=== PATIENT | female | born 1980 | race Caucasian/White ===

== ENCOUNTER 2017-05-29 10:43 | Emergency (ER) | payer SELFPAY ==
[2017-05-29 10:54] VITALS: TEMP 98
[2017-05-29] MEDS ORDERED: cloNIDine HCL 0.1 MG TAB PO ONE (11:13)
--- NOTE | 2017-05-29 11:17 | ED.PDOC ---
History of Present Illness - General Chief Complaint: ENT Problem Stated Complaint: Sore throat, rash, aches Time Seen by Provider: 05/29/17 11:12 Source: patient, RN notes reviewed - History of Present Illness Timing/Duration: gradual EENT Location: throat Prearrival Treatment: no prearrival treatment Improving Factors: nothing Associated Symptoms: fever, malaise - SHE IS HERE WITH A SORE THROAT AND A SUBJECTIVE FEVER FOR THE PAST TWO DAYS. SHE ALSO VOICES HAVING A RASH TO THE HANDS. VOLAR ASPECT AND ALSO STOPPED TAKING THE LISINOPRIL SEVERAL MONTHS AGO. NOW HER BP IS HIGH Allergies/Adverse Reactions: Allergies NO KNOWN ALLERGY Allergy (Verified 05/29/17 11:06) Home Medications: Ambulatory Orders Lisinopril 20 mg PO DAILY 12/24/13 Trazodone HCl 150 mg PO BEDTIME 12/24/13 Azithromycin [Zithromax Z-Jordi] 1 ea PO DAILY #1 pack 05/29/17 Triamcinolone 0.5% Cream [Kenalog 0.5% Cream] 15 gm TOP BID #1 tube 05/29/17 amLODIPine BESYLATE [Norvasc] 5 mg PO DAILY #30 tab 05/29/17 Review of Systems - Review of Systems Constitutional: States: chills, fever, malaise EENTM: States: throat pain, throat swelling Respiratory: States: cough Cardiology: States: palpitations Gastrointestinal/Abdominal: States: no symptoms reported Genitourinary: States: no symptoms reported Musculoskeletal: States: no symptoms reported Skin: States: rash - RASH TO THE PALMAR ASPECT OF THE HANDS Neurological: States: no symptoms reported Endocrine: States: no symptoms reported Hematologic/Lymphatic: States: no symptoms reported All other Systems: Reviewed and Negative, No Change from Baseline Past Medical History (General) - Patient Medical History Hx Seizures: No Hx Stroke: No Hx Dementia: No Hx Asthma: No Hx of COPD: No Hx Cardiac Disorders: No Hx Congestive Heart Failure: No Hx Pacemaker: No Hx Hypertension: Yes - Stopped taking her Lisinopril 04/2017 Hx Thyroid Disease: No Hx Diabetes: No Hx Gastroesophageal Reflux: No Hx Renal Disease: No Hx Cancer: No Hx of HIV: No Hx Hepatitis C: No Hx MRSA: Yes - Abscess 2015 MRSA Source:: Wound - Vaccination History Hx Tetanus, Diphtheria Vaccination: Yes Hx Influenza Vaccination: No Hx Pneumococcal Vaccination: No - Social History Hx Tobacco Use: Yes Hx Chewing Tobacco Use: No Hx Alcohol Use: No Hx Substance Use: No Hx Substance Use Treatment: No Hx Depression: Yes - Takes Trazodone; has not taken this in about one week Hx Physical Abuse: No Hx Emotional Abuse: No Hx Suspected Abuse: No - Female History Patient is a Female of Child Bearing Age (10 -59 yrs old): Yes Hx Last Menstrual Period: 11/29/13 Patient : No Family Medical History - Family History Mother Family History: No Known Living Status: Still Living Physical Exam - Physical Exam General Appearance: Alert, Well Developed, Well Hydrated, Well Nourished Eye Exam: bilateral normal Nasal Exam: normal inspection Throat Exam: pharynx tenderness, tonsillar exudate Neck: non-tender, full range of motion, supple, normal inspection Cardiovascular/Respiratory: regular rate, rhythm, normal peripheral pulses, no JVD, normal breath sounds, no respiratory distress Abdominal Exam: non-tender, no organomegaly Neurologic: no motor/sensory deficits, alert, normal mood/affect, oriented x 3 Skin Exam: other - PAPULAR RASH TO THE PALMAR ASPECT OF THE HANDS, SUGGESTIVE OF DYSHYDROSIS Progress - Results/Orders Results/Orders: RAPID STREPT SCREEN WAS NEGATIVE. THE BP WILL BE RETAKEN. Departure - Departure Clinical Impression: Dermatitis, dyshidrotic Acute pharyngitis, unspecified Qualifiers: Pharyngitis/tonsillitis etiology: unspecified etiology Qualified Code(s): J02.9 - Acute pharyngitis, unspecified Hypertension Qualifiers: Hypertension type: essential hypertension Qualified Code(s): I10 - Essential ( primary) hypertension Disposition: Discharge to Home or Self Care Condition: Fair Departure Forms: Patient Portal Self Enrollment, ED Discharge - Pt. Copy Instructions: Sore Throat Diet: resume usual diet Activity: walking as tolerated Referrals: ILDA MUÑOZ [Primary Care Provider] - 1-2 Weeks Prescriptions: amLODIPine BESYLATE [Norvasc] 5 mg PO DAILY #30 tab Azithromycin [Zithromax Z-Jordi] 1 ea PO DAILY #1 pack Triamcinolone 0.5% Cream [Kenalog 0.5% Cream] 15 gm TOP BID #1 tube Home Medications: Ambulatory Orders Lisinopril 20 mg PO DAILY 12/24/13 Trazodone HCl 150 mg PO BEDTIME 12/24/13 Azithromycin [Zithromax Z-Jordi] 1 ea PO DAILY #1 pack 05/29/17 Triamcinolone 0.5% Cream [Kenalog 0.5% Cream] 15 gm TOP BID #1 tube 05/29/17 amLODIPine BESYLATE [Norvasc] 5 mg PO DAILY #30 tab 05/29/17
[2017-05-29 12:56] VITALS: BP 141/85; O2SAT 95
== END 2017-05-29 12:40 | disposition home or self-care (01) ==
LOC: ER 10:43
DX: J02.9 Acute pharyngitis, unspecified (principal); L30.1 Dyshidrosis [pompholyx]; I10 Essential (primary) hypertension; F32.9 Major depressive disorder, single episode, unspecified; F17.200 Nicotine dependence, unspecified, uncomplicated; Z79.899 Other long term (current) drug therapy

== ENCOUNTER 2018-04-14 15:22 | Emergency (ER) | payer SELFPAY ==
[2018-04-14] MEDS ORDERED: KETOROLAC TROMETHAMINE INJ 30 MG/ML VIAL IV ONE (15:39)
[2018-04-14] MEDS ORDERED: raNITIdine HCL INJ 50 MG in SODIUM CHLORIDE 0.9% 50ML 50 ML IVPB ONE (15:41)
[2018-04-14] MEDS ORDERED: diphenhydrAMINE HCL 50 MG/ML VIAL IV ONE (15:41)
[2018-04-14 15:44] VITALS: TEMP 98.6
[2018-04-14] MEDS ORDERED: raNITIdine HCL INJ 25 MG/ML VIAL ONE ×2 (15:44→15:45)
[2018-04-14] MEDS ORDERED: SODIUM CHLORIDE 0.9% 50ML 0 ML ONE (15:44)
[2018-04-14] MEDS ORDERED: SODIUM CHLORIDE 0.9% 50ML 50 ML ONE ×2 (15:46→16:34)
[2018-04-14] MEDS ORDERED: SODIUM CHLORIDE 0.9% 1000ML 1,000 ML IVS ONE (16:24)
[2018-04-14] MEDS ORDERED: PROMETHAZINE HCL INJ 12.5 MG in SODIUM CHLORIDE 0.9% 50ML 50 ML IVPB ONE (16:24)
[2018-04-14] MEDS ORDERED: PROMETHAZINE HCL INJ 25 MG/ML VIAL ONE (16:34)
--- NOTE | 2018-04-14 16:37 | ED.PDOC ---
History of Present Illness - General Chief Complaint: Allergic Reaction Time Seen by Provider: 04/14/18 15:38 Source: patient Exam Limitations: no limitations - History of Present Illness Initial Comments: UTI SX X 4-5 D - DYSURIA, L FLANK PAIN, BLOOD IN URINE. 3 D AGO, STARTED TAKING A PARTIAL LEFTOVER BACTRIM RX. TODAY, NOTICED A RASH ON HER ANTERIOR CHEST AND NAUSEA. NO SOB. NO CP. Timing/Duration: changing over time Severity: moderate Improving Factors: nothing Worsening Factors: nothing Associated Symptoms: nausea/vomiting, rash Allergies/Adverse Reactions: Allergies NO KNOWN ALLERGY Allergy (Verified 05/29/17 11:06) Home Medications: Ambulatory Orders Lisinopril 20 mg PO DAILY 12/24/13 Trazodone HCl 150 mg PO BEDTIME 12/24/13 Azithromycin [Zithromax Z-Jordi] 1 ea PO DAILY #1 pack 05/29/17 Triamcinolone 0.5% Cream [Kenalog 0.5% Cream] 15 gm TOP BID #1 tube 05/29/17 amLODIPine BESYLATE [Norvasc] 5 mg PO DAILY #30 tab 05/29/17 Nitrofurantoin Monohydrate Mac [Macrobid] 100 mg PO BID 5 Days #10 capsule 04/14 Promethazine HCl 12.5 mg PO Q8H PRN #20 tab 04/14/18 Review of Systems - Review of Systems Constitutional: States: no symptoms reported. Denies: chills, diaphoresis, fever EENTM: States: no symptoms reported Respiratory: States: no symptoms reported Cardiology: States: no symptoms reported Gastrointestinal/Abdominal: States: nausea, vomiting. Denies: abdominal pain, constipation, diarrhea Genitourinary: States: dysuria, hematuria, pain Musculoskeletal: States: other - L Flank pain Skin: States: rash Neurological: States: no symptoms reported Endocrine: States: no symptoms reported Hematologic/Lymphatic: States: no symptoms reported Past Medical History (General) - Patient Medical History Hx Seizures: No Hx Stroke: No Hx Dementia: No Hx Asthma: No Hx of COPD: No Hx Cardiac Disorders: No Hx Congestive Heart Failure: No Hx Pacemaker: No Hx Hypertension: Yes Hx Thyroid Disease: No Hx Diabetes: No Hx Gastroesophageal Reflux: No Hx Renal Disease: No Hx Cancer: No Hx of HIV: No Hx Hepatitis C: No Hx MRSA: No MRSA Source:: Wound - Vaccination History Hx Tetanus, Diphtheria Vaccination: No Hx Influenza Vaccination: Yes Hx Pneumococcal Vaccination: No Immunizations Up to Date: No - Social History Hx Tobacco Use: Yes Hx Chewing Tobacco Use: No Hx Alcohol Use: No Hx Substance Use: No Hx Substance Use Treatment: No Hx Depression: No Feels Threatened In Home Enviroment: No Feels Threatened In a Relationship: No Hx Physical Abuse: No Hx Emotional Abuse: No Hx Suspected Abuse: No - Activities of Daily Living Hospice Agency (if applicable):: None - Female History Patient is a Female of Child Bearing Age (10 -59 yrs old): Yes Hx Last Menstrual Period: 11/29/13 Patient : No Family Medical History - Family History Mother Family History: No Known Living Status: Still Living Physical Exam - Physical Exam General Appearance: Alert, Obese Eye Exam: bilateral normal Ears, Nose, Throat: hearing grossly normal, normal ENT inspection Neck: full range of motion, normal inspection Respiratory: chest non-tender, lungs clear, normal breath sounds Cardiovascular/Chest: regular rate, rhythm, no JVD, no murmur Peripheral Pulses: radial,right: 2+, radial,left: 2+ Gastrointestinal/Abdominal: normal bowel sounds, soft, no organomegaly, no pulsatile mass, tenderness - SUPRAPUBIC Back Exam: CVA tenderness (L) Extremity: normal range of motion, normal inspection Neurologic: alert, normal mood/affect Skin Exam: rash - FAINT ERYTHEMA OF ANTEROSUPERIOR CHEST. Lymphatic: no adenopathy Progress - Progress Progress: 04/14/18 16:41 POSSIBLE ALLERGIC SKIN RXN TO BACTRIM (NO ANAPHYLAXIS) VS SX FROM UNTREATED UTI - DC BACTRIM. GAVE BENADRYL AND ZANTAC. 04/14/18 16:53 N/V - GAVE PHENERGAN IN ER. L FLANK UTI PAIN - GAVE TORADOL. NS BOLUS. ROCEPHIN. 04/14/18 16:57 U/A IS NEG SINCE PT HAS BEEN ON BACTRIM FOR 3 D, SO IT PARTIALLY TREATED THE UTI. SINCE IT DID NOT FULLY TX UTI, I AM GIVING ROCEPHIN AND WILL RX NITROFURANTOIN. ORDERED UR CX SINCE REFRACTORY TO PT'S OLD/PARTIAL BACTRIM RX. NO MICROSCOPIC HEMATURIA THUS I AM NOT CONCERNED ABOUT NEPHOLITHIASIS, PLUS PT 'S PAIN IS MILD AND NOT C/W A STONE. CBC NEUTROPHILIC LEUKOCYTOSIS, C/W UTI. CMP - CR NL. BUN ELEVATED C/W DEHYDRATION THUS NS BOLUS. 04/14/18 17:09 SAFE FOR DC TO HOME. RX'D MACRIBID. PHENERGAN PRN. - EKG/XRAY/CT CT Ordered: No CT Interpretation Call Back: No Departure - Departure Clinical Impression: Neutrophilic leukocytosis, Elevated BUN, Mild dehydration, Acute left flank pain, Allergic drug rash due to sulfonamide, Dysuria UTI (urinary tract infection) Qualifiers: Urinary tract infection type: acute cystitis Hematuria presence: without hematuria Qualified Code(s): N30.00 - Acute cystitis without hematuria Nausea & vomiting Qualifiers: Vomiting type: unspecified Vomiting Intractability: non-intractable Qualified Code(s): R11.2 - Nausea with vomiting, unspecified Disposition: Discharge to Home or Self Care Departure Forms: ED Discharge - Pt. Copy, Patient Portal Self Enrollment Instructions: Medication Safety, Adult, Urinary Tract Infection, Adult (DC) Diet: resume usual diet Activity: increase activity as tolerated Referrals: Johanne Cabrera NP [Primary Care Provider] - 1 Week Prescriptions: Nitrofurantoin Monohydrate Mac [Macrobid] 100 mg PO BID 5 Days #10 capsule Promethazine HCl 12.5 mg PO Q8H PRN #20 tab PRN Reason: Nausea Home Medications: Ambulatory Orders Lisinopril 20 mg PO DAILY 12/24/13 Trazodone HCl 150 mg PO BEDTIME 12/24/13 Azithromycin [Zithromax Z-Jordi] 1 ea PO DAILY #1 pack 05/29/17 Triamcinolone 0.5% Cream [Kenalog 0.5% Cream] 15 gm TOP BID #1 tube 05/29/17 amLODIPine BESYLATE [Norvasc] 5 mg PO DAILY #30 tab 05/29/17 Nitrofurantoin Monohydrate Mac [Macrobid] 100 mg PO BID 5 Days #10 capsule 04/14 Promethazine HCl 12.5 mg PO Q8H PRN #20 tab 04/14/18 Additional Instructions: Please discontinue and discard the old antibiotic prescription (Bactrim). It is not safe to take old, partial antibiotic prescriptions since it may not treat or worsen an infection. Please completely finish the antibiotics as prescribed today. In other words, even if your symptoms improve after 2-3 days, please complete all 5 days of Macrobid (nitrofurantoin) to best eliminate the urine infection. The other medication, promethazine, you don't have to take. It is just available for you to take it if you are feeling nauseous. Please drink at least 64 oz of water per day.
[2018-04-14] MEDS ORDERED: cefTRIAXone SODIUM 1 GM VIAL IM ONE (16:57)
[2018-04-14] MEDS ORDERED: LIDOCAINE 1% 2 ML VIAL INJ ONE (17:12)
[2018-04-14 17:55] VITALS: BP 150/102; O2SAT 100
== END 2018-04-14 17:50 | disposition home or self-care (01) ==
LOC: ER 15:22
DX: N30.00 Acute cystitis without hematuria (principal); E86.0 Dehydration; L27.1 Localized skin eruption due to drugs and medicaments taken internally; T37.0X5A Adverse effect of sulfonamides, initial encounter; R79.89 Other specified abnormal findings of blood chemistry; D72.828 Other elevated white blood cell count; R11.2 Nausea with vomiting, unspecified; I10 Essential (primary) hypertension; Z79.899 Other long term (current) drug therapy; Z87.891 Personal history of nicotine dependence
CPT/HCPCS: 36415; 80053; 81001; 85025; 87086; A4216; J0696; J1200; J1885; J2550; J2780; J7030

== ENCOUNTER → 2018-10-11 | Outpatient (CLI) | payer MEDICAID | LOC: LAB.O 07:21 | PROVIDERS: ATTEND Obstetrics & Gynecology | DX: O09.522 Supervision of elderly multigravida, second trimester (principal); Z3A.24 24 weeks gestation of pregnancy ==

== ENCOUNTER 2018-12-06 04:10 | Emergency (ER) | payer MEDICAID, OTHER ==
[2018-12-06 04:26] VITALS: O2SAT 98
[2018-12-06] MEDS ORDERED: LACTATED RINGERS 1,000 ML IVS PRN (04:30)
--- NOTE | 2018-12-06 04:34 | ED.PDOC ---
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 Timing/Duration: this evening Quality: moderate, intermittent, sharpness Onset Location: generalized flank Radiation: none Activites at Onset: none Prior abdominal problems: none Sexual intercourse history: single partner Improving Factors: nothing Worsening Factors: nothing Associated Symptoms: other - see hpi Allergies/Adverse Reactions: Allergies NO KNOWN ALLERGY Allergy (Verified 05/29/17 11:06) Home Medications: Ambulatory Orders Lisinopril 20 mg PO DAILY 12/24/13 Trazodone HCl 150 mg PO BEDTIME 12/24/13 Azithromycin [Zithromax Z-Jordi] 1 ea PO DAILY #1 pack 05/29/17 Triamcinolone 0.5% Cream [Kenalog 0.5% Cream] 15 gm TOP BID #1 tube 05/29/17 amLODIPine BESYLATE [Norvasc] 5 mg PO DAILY #30 tab 05/29/17 Nitrofurantoin Monohydrate Mac [Macrobid] 100 mg PO BID 5 Days #10 capsule 04/14/18 Promethazine HCl [Promethazine Hydrochlorid] 12.5 mg PO Q8H PRN #20 tab 04/14/18 Review of Systems - Review of Systems Gastrointestinal/Abdominal: States: see HPI, other - uterine contractions Genitourinary: States: see HPI, other - vaginal bleeding Past Medical History (General) - Patient Medical History Hx Seizures: No Hx Stroke: No Hx Dementia: No Hx Asthma: No Hx of COPD: No Hx Cardiac Disorders: No Hx Congestive Heart Failure: No Hx Pacemaker: No Hx Hypertension: Yes Hx Thyroid Disease: No Hx Diabetes: No Hx Gastroesophageal Reflux: No Hx Renal Disease: No Hx Cancer: No Hx of HIV: No Hx Hepatitis C: No Hx MRSA: No MRSA Source:: Wound Surgical History: no surgical history - Vaccination History Hx Tetanus, Diphtheria Vaccination: Yes Hx Influenza Vaccination: Yes Hx Pneumococcal Vaccination: No - Social History Hx Tobacco Use: Yes Hx Chewing Tobacco Use: No Hx Alcohol Use: No Hx Substance Use: No Hx Substance Use Treatment: No Hx Depression: No Hx Physical Abuse: No Hx Emotional Abuse: No Hx Suspected Abuse: No - Female History Patient is a Female of Child Bearing Age (10 -59 yrs old): Yes Hx Last Menstrual Period: 11/29/13 Patient : Yes Expected Date of Delivery:: 01/20/19 - Triage Comment ED Triage Comment: patient states that she was going to be induced on 01/06/2019 Family Medical History - Family History Mother Family History: No Known Living Status: Still Living Physical Exam - Physical Exam General Appearance: Alert, Anxious, No apparent distress Eyes, Ears, Nose, Throat Exam: normal ENT inspection Neck: supple, normal inspection Cardiovascular/Respiratory: regular rate, rhythm, normal peripheral pulses, no respiratory distress Gastrointestinal/Abdominal: other - uterine CTX every 2-3 mins x 4 since arrival at ER;FHT-132/min Pelvic Exam: other - noted blood clots vaginal introitus,vaginal Exam -no blood clots noted vagina exam finger closed 2 cms dilated Extremity: no pedal edema, no calf tenderness Neurologic: alert, oriented x 3 Skin Exam: normal color, warm/dry Progress - Progress Progress: 12/06/18 04:38 Vital Signs - 8 hr 12/06/18 04:17 Respiratory 32 H Rate Blood Pressure 189/111 [Right Arm] O2 Sat by Pulse [address] 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 and advised to send to [facility] Departure - Departure Clinical Impression: Premature labor after 22 weeks, but before 37 completed weeks of gestation without delivery, Chronic hypertension affecting , Vaginal bleeding Time of Disposition: 04:48 Disposition: Transfer to Hospital Condition: Fair Departure Forms: Patient Portal Self Enrollment Referrals: Lars Kong MD [Primary Care Provider] - 1-2 Weeks Home Medications: Ambulatory Orders Lisinopril 20 mg PO DAILY 12/24/13 Trazodone HCl 150 mg PO BEDTIME 12/24/13 Azithromycin [Zithromax Z-Jordi] 1 ea PO DAILY #1 pack 05/29/17 Triamcinolone 0.5% Cream [Kenalog 0.5% Cream] 15 gm TOP BID #1 tube 05/29/17 amLODIPine BESYLATE [Norvasc] 5 mg PO DAILY #30 tab 05/29/17 Nitrofurantoin Monohydrate Mac [Macrobid] 100 mg PO BID 5 Days #10 capsule 04/14/18 Promethazine HCl [Promethazine Hydrochlorid] 12.5 mg PO Q8H PRN #20 tab 04/14/18 Transfer to Outside Facility - Transfer Information Accepting Provider:: Dr. 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
[2018-12-06] MEDS ORDERED: LABETALOL INJ 5 MG/ML VIAL IV ONE (04:38)
[2018-12-06] MEDS ORDERED: MAGNESIUM SULFATE PREMIX 2GM 50 ML IVPB ONE (04:39)
[2018-12-06] MEDS ORDERED: MAGNESIUM SULFATE PREMIX 2GM 2 GM in PREMIX BAG 1 BAG IVPB ONE (04:40)
[2018-12-06 04:56] VITALS: BP 161/118; TEMP 97.9
== END 2018-12-06 04:50 | disposition short-term general hospital (02) ==
LOC: ER 04:10
DX: O60.03 Preterm labor without delivery, third trimester (principal); O09.523 Supervision of elderly multigravida, third trimester; O10.913 Unspecified pre-existing hypertension complicating pregnancy, third trimester; I10 Essential (primary) hypertension; Z3A.33 33 weeks gestation of pregnancy; Z87.891 Personal history of nicotine dependence; Z79.899 Other long term (current) drug therapy

== ENCOUNTER 2019-02-01 20:00 | Emergency (ER) | payer OTHER ==
[2019-02-01 20:21] VITALS: TEMP 97.2
--- NOTE | 2019-02-01 21:17 | ED.PDOC ---
History of Present Illness - General Chief Complaint: Problem Stated Complaint: urinary problems, poor output Time Seen by Provider: 02/01/19 21:03 Source: patient Exam Limitations: no limitations - History of Present Illness Initial Comments: 7 WKS . PT STATES DURING SHE HAD ANIBAL, ECLAMPSIA, AND GESTATIONAL DM. SHE THINKS THEY RESOLVED WITH THE . SHE COMES TO ER [facility] FOR BL FLANK PAIN STARTING LAST NOC BUT NO DYSURIA. SHE IS WORRIED THE ANIBAL MIGHT HAVE RETURNED. SHE IS TAKING GOOD PO FLUIDS. Timing/Duration: 24 hours Severity: severe Improving Factors: nothing Worsening Factors: nothing Associated Symptoms: denies symptoms Allergies/Adverse Reactions: Allergies NO KNOWN ALLERGY Allergy (Verified 05/29/17 11:06) Home Medications: Ambulatory Orders Escitalopram [Lexapro] 10 mg PO 02/01/19 cloNAZepam [Klonopin] 1 mg 02/01/19 Nitrofurantoin Monohydrate Mac [Macrobid] 100 mg PO BID #14 cap 02/02/19 Review of Systems - Review of Systems Constitutional: Denies: chills, diaphoresis EENTM: States: no symptoms reported Respiratory: States: no symptoms reported Cardiology: States: no symptoms reported Gastrointestinal/Abdominal: Denies: abdominal pain, constipation, diarrhea, nausea, vomiting Genitourinary: States: pain - BL FLANK PAIN. Denies: dysuria, frequency, hematuria Musculoskeletal: Denies: joint pain, neck pain Skin: States: no symptoms reported Neurological: States: no symptoms reported Endocrine: States: no symptoms reported. Denies: increased thirst, increased urine Hematologic/Lymphatic: States: no symptoms reported Past Medical History (General) - Patient Medical History Hx Seizures: No Hx Stroke: No Hx Dementia: No Hx Asthma: No Hx of COPD: No Hx Cardiac Disorders: No Hx Congestive Heart Failure: No Hx Pacemaker: No Hx Hypertension: Yes Hx Thyroid Disease: No Hx Diabetes: No Hx Gastroesophageal Reflux: No Hx Renal Disease: No Hx Cancer: No Hx of HIV: No Hx Hepatitis C: No Hx MRSA: No MRSA Source:: Wound - Vaccination History Hx Tetanus, Diphtheria Vaccination: Yes Hx Influenza Vaccination: Yes Hx Pneumococcal Vaccination: No Immunizations Up to Date: No - Social History Hx Tobacco Use: Yes Hx Chewing Tobacco Use: No Hx Alcohol Use: No Hx Substance Use: No Hx Substance Use Treatment: No Hx Depression: No Hx Physical Abuse: No Hx Emotional Abuse: No Hx Suspected Abuse: No - Female History Hx Last Menstrual Period: 11/29/13 Patient : Yes Expected Date of Delivery:: 01/20/19 - Triage Comment ED Triage Comment: Recent childbirth Family Medical History - Family History Mother Family History: No Known Living Status: Still Living Physical Exam - Physical Exam General Appearance: Alert, Obese Eye Exam: bilateral normal Ears, Nose, Throat: hearing grossly normal, normal ENT inspection Neck: non-tender, full range of motion Respiratory: chest non-tender, lungs clear Cardiovascular/Chest: normal peripheral pulses, regular rate, rhythm Peripheral Pulses: radial,right: 2+, radial,left: 2+ Gastrointestinal/Abdominal: normal bowel sounds, non tender, soft, no organomegaly, no pulsatile mass Back Exam: normal inspection, CVA tenderness (R), CVA tenderness (L) Extremity: normal range of motion, normal inspection, no pedal edema, no calf tenderness Neurologic: no motor/sensory deficits, normal mood/affect Skin Exam: normal color, warm/dry Lymphatic: no adenopathy Progress - Progress Progress: 02/02/19 00:01 CT NEG FOR PT'S PAIN. GIVING SOLUMEDROL. CBC WBC'S AND UA KETONES. UTI THUS GAVE ROCEPHIN. RX PO. HCG NEG. BUN 20 THUS BOLUSED. LFT'S SLIGHTLY ELEVATED. Departure - Departure Clinical Impression: Bilateral flank pain, Neutrophilic leukocytosis, Dehydration, mild, Elevated LFTs UTI (urinary tract infection) Qualifiers: Urinary tract infection type: acute cystitis Hematuria presence: without hematuria Qualified Code(s): N30.00 - Acute cystitis without hematuria Disposition: Discharge to Home or Self Care Condition: Good Departure Forms: ED Discharge - Pt. Copy, Patient Portal Self Enrollment Instructions: DI for Urinary Tract Infection (UTI) Diet: resume usual diet Activity: increase activity as tolerated Referrals: Lars Kong MD [Primary Care Provider] - 1-5 Days Prescriptions: Nitrofurantoin Monohydrate Mac [Macrobid] 100 mg PO BID #14 cap Home Medications: Ambulatory Orders Escitalopram [Lexapro] 10 mg PO 02/01/19 cloNAZepam [Klonopin] 1 mg 02/01/19 Nitrofurantoin Monohydrate Mac [Macrobid] 100 mg PO BID #14 cap 02/02/19
[2019-02-01] MEDS: HYDROmorphone HCL INJ 2 MG/ML VIAL IV ONE (21:18)
--- NOTE | 2019-02-01 22:14 | CT ---
EXAM DESCRIPTION: Abdomen t/Pelvis w/o Contrast CLINICAL HISTORY: BL FLANK PAIN; H/O ANIBAL.. COMPARISON: None. TECHNIQUE: Sequential axial images were obtained with a multi-detector helical CT without administration of intravenous iodinated contrast material. Oral contrast was not given. Automatic exposure control (AEC), mA and/or kV adjustment by patient size, and/or iterative reconstructive technique was used, per departmental dose optimization program, during the performance of the CT examination. The lack of contrast limits detailed evaluation of the abdominal organs. FINDINGS: The visualized lung bases are clear. The non-contrast enhanced images of the liver is unremarkable . The spleen, pancreas and adrenals are unremarkable. The gallbladder is unremarkable. The kidneys are normal in appearance. There are no renal calculi. No evidence of ureteral calculi are seen. The stomach is unremarkable. The loops of small bowel are unremarkable. The appendix is unremarkable. The colon appears unremarkable. Few scattered diverticuli are noted in the sigmoid colon. There is no evidence of diverticulitis. The aorta and inferior vena cava are unremarkable. The bladder is unremarkable. Reproductive organs are unremarkable. There is no pelvic or abdominal lymphadenopathy. No ascites. No free air. The inguinal regions are unremarkable. The visualized bony structures are unremarkable. IMPRESSION: Unremarkable non-contrast abdominal and pelvis CT. Electronically signed by: Wendi Leigh MD 02/01/2019 10:13 PM CDT
[2019-02-01] MEDS: cefTRIAXone SODIUM 1 GM VIAL IV ONE (22:40)
[2019-02-01] MEDS: SODIUM CHLORIDE 0.9% 1000ML 1,000 ML IVS ONE (22:40)
[2019-02-02] MEDS: methylPREDNISolone SODIUM SUC 125 MG/2 ML VIAL IV ONE (00:03)
[2019-02-02 00:19] VITALS: BP 159/89; O2SAT 97
== END 2019-02-02 00:12 | disposition home or self-care (01) ==
LOC: ER 20:00
DX: N30.00 Acute cystitis without hematuria (principal); E86.0 Dehydration; D72.829 Elevated white blood cell count, unspecified; R79.89 Other specified abnormal findings of blood chemistry; I10 Essential (primary) hypertension; Z87.891 Personal history of nicotine dependence; Z79.899 Other long term (current) drug therapy
CPT/HCPCS: 36415; 74176; 80053; 81001; 84703; 85025; J0696; J1170; J2930; J7030

== ENCOUNTER 2019-04-03 19:35 | Emergency (ER) | payer SELFPAY ==
[2019-04-03 19:49] VITALS: TEMP 97.8; O2SAT 99
--- NOTE | 2019-04-03 20:01 | ED.PDOC ---
History of Present Illness - General Chief Complaint: ENT Problem Stated Complaint: sore throat Time Seen by Provider: 04/03/19 19:59 - History of Present Illness Initial Comments: c/o sore throat since 1-2 days associated with intermittent fever which gets better with Tylenol Timing/Duration: gradual Severity: severe Improving Factors: nothing Worsening Factors: nothing Associated Symptoms: fever, sore throat Allergies/Adverse Reactions: Allergies NO KNOWN ALLERGY Allergy (Verified 05/29/17 11:06) Home Medications: Ambulatory Orders Escitalopram [Lexapro] 10 mg PO 02/01/19 cloNAZepam [Klonopin] 1 mg 02/01/19 Amlodipine Besylate 5 mg PO DAILY #10 tab 04/03/19 Amoxicillin 500 mg PO TID #30 tab 04/03/19 Blood Pressure Med 04/03/19 Review of Systems - Review of Systems Constitutional: States: see HPI EENTM: States: see HPI Respiratory: States: no symptoms reported Cardiology: States: no symptoms reported Gastrointestinal/Abdominal: States: no symptoms reported Genitourinary: States: no symptoms reported Musculoskeletal: States: no symptoms reported Skin: States: no symptoms reported Neurological: States: no symptoms reported Endocrine: States: no symptoms reported Hematologic/Lymphatic: States: no symptoms reported Past Medical History (General) - Patient Medical History Hx Seizures: No Hx Stroke: No Hx Dementia: No Hx Asthma: No Hx of COPD: No Hx Cardiac Disorders: No Hx Congestive Heart Failure: No Hx Pacemaker: No Hx Hypertension: Yes Hx Thyroid Disease: No Hx Diabetes: Yes - gestational Hx Gastroesophageal Reflux: No Hx Renal Disease: No Hx Cancer: No Hx of HIV: No Hx Hepatitis C: No Hx MRSA: No MRSA Source:: Wound - Vaccination History Hx Tetanus, Diphtheria Vaccination: Yes Hx Influenza Vaccination: Yes Hx Pneumococcal Vaccination: No - Social History Hx Tobacco Use: Yes Hx Chewing Tobacco Use: No Hx Alcohol Use: No Hx Substance Use: No Hx Substance Use Treatment: No Hx Depression: No Hx Physical Abuse: No Hx Emotional Abuse: No Hx Suspected Abuse: No - Female History Patient is a Female of Child Bearing Age (10 -59 yrs old): Yes Hx Last Menstrual Period: 11/29/13 Patient : No Expected Date of Delivery:: 01/20/19 Family Medical History - Family History Mother Family History: No Known Living Status: Still Living Physical Exam - Physical Exam General Appearance: Alert, Comfortable Ear Exam: bilateral ear: auricle normal Nasal Exam: normal inspection Throat Exam: pharynx swelling, tonsillar swelling - erythemtous Pharynx and B/l tonsils Departure - Departure Clinical Impression: Pharyngitis, Acute pharyngitis, unspecified, Tonsillitis, HTN (hypertension), benign Time of Disposition: 20:03 Disposition: Discharge to Home or Self Care Condition: Good Departure Forms: ED Discharge - Pt. Copy, Patient Portal Self Enrollment Diet: resume usual diet Activity: increase activity as tolerated, walking as tolerated Referrals: Lars Kong MD [Primary Care Provider] - 1-2 Weeks Prescriptions: Amlodipine Besylate 5 mg PO DAILY #10 tab Amoxicillin 500 mg PO TID #30 tab Home Medications: Ambulatory Orders Escitalopram [Lexapro] 10 mg PO 02/01/19 cloNAZepam [Klonopin] 1 mg 02/01/19 Amlodipine Besylate 5 mg PO DAILY #10 tab 04/03/19 Amoxicillin 500 mg PO TID #30 tab 04/03/19 Blood Pressure Med 04/03/19
[2019-04-03] MEDS ORDERED: cefTRIAXone SODIUM 1 GM VIAL IM ONE (20:08)
[2019-04-03] MEDS ORDERED: MORPHINE SULFATE INJ 10 MG/ML VIAL IM ONE (20:09)
[2019-04-03] MEDS ORDERED: LIDOCAINE 1% 2 ML VIAL INJ ONE (20:13)
[2019-04-03 20:33] VITALS: BP 145/105
== END 2019-04-03 20:29 | disposition home or self-care (01) ==
LOC: ER 19:35
DX: J03.90 Acute tonsillitis, unspecified (principal); I10 Essential (primary) hypertension; Z87.891 Personal history of nicotine dependence; Z86.32 Personal history of gestational diabetes
CPT/HCPCS: 87070; 87880; J0696; J2270

== ENCOUNTER → 2020-03-05 | Outpatient (CLI) | payer OTHER | LOC: YCFC.O 14:51 | PROVIDERS: ATTEND Nurse Practitioner Family | DX: Z03.818 Encounter for observation for suspected exposure to other biological agents ruled out (principal) ==

== ENCOUNTER → 2020-03-29 | Outpatient (CLI) | payer OTHER | LOC: YCFC.O 10:34 | PROVIDERS: ATTEND Family Medicine | DX: Z20.828 Contact with and (suspected) exposure to other viral communicable diseases (principal) ==

== ENCOUNTER 2020-05-15 09:20 | Emergency (ER) | payer SELFPAY | END 2020-05-15 11:01 | disposition left against medical advice (07) | LOC: ER 09:20 | DX: R52 Pain, unspecified (principal); Z53.21 Procedure and treatment not carried out due to patient leaving prior to being seen by health care provider ==

== ENCOUNTER 2020-07-17 06:30 | Emergency (ER) | payer SELFPAY ==
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
[2020-07-17] MEDS ORDERED: KETOROLAC TROMETHAMINE INJ 30 MG/ML VIAL IV ONE (07:12)
[2020-07-17] MEDS ORDERED: KETOROLAC TROMETHAMINE INJ 60 MG/2 ML VIAL IM ONE (07:18)
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
[2020-07-17 09:25] VITALS: BP 147/106; TEMP 97.8; O2SAT 98
== END 2020-07-17 08:53 | disposition home or self-care (01) ==
LOC: ER 06:30
DX: S00.33XA Contusion of nose, initial encounter (principal); S16.1XXA Strain of muscle, fascia and tendon at neck level, initial encounter; S29.012A Strain of muscle and tendon of back wall of thorax, initial encounter; I11.0 Hypertensive heart disease with heart failure; R13.10 Dysphagia, unspecified; I50.9 Heart failure, unspecified; Y04.0XXA Assault by unarmed brawl or fight, initial encounter; Y92.9 Unspecified place or not applicable; Z79.899 Other long term (current) drug therapy; Z87.891 Personal history of nicotine dependence
CPT/HCPCS: 70160; 70490; 72070; 93005; J1885